=== PATIENT | male | born 1950 | race Caucasian/White ===

== ENCOUNTER 2016-12-17 16:22 | Emergency (ER) | payer OTHER, BC ==
[~2016-12-17] VITALS: Ht 175.3 cm; Wt 86.5 kg
[2016-12-17 16:28] VITALS: TEMP 36.8; Ht 175.3 cm; Wt 86.5 kg
[2016-12-17] MEDS ORDERED: SODIUM CHLORIDE 0.9% 1000ML 1,000 ML IV STA (17:12)
[2016-12-17] MEDS ORDERED: METOCLOPRAMIDE HCL INJ 5 MG/ML 2 ML VIAL IV STA (17:12)
[2016-12-17 17:32] LABS: HEMATOCRIT 41.8 % (42-52); MEAN CELL VOLUME 90.1 fL (80-100); MEAN CORPUSCULAR HEMOGLOBIN 30.8 pg (25-34); MEAN CORPUSCULAR HGB CONC 34.2 g/dl (32-36); MEAN PLATELET VOLUME 9.2 fL (7.4-10.4); PLATELET COUNT 172 K/uL (130-400); RED BLOOD COUNT 4.64 M/uL (4.7-6.1); WHITE BLOOD COUNT 3.68 K/uL (4.8-10.8)
[2016-12-17 17:40] LABS: BLOOD UREA NITROGEN 13 mg/dl (7-18); BUN/CREATININE RATIO 12.2 (10-20); CALCIUM 8.9 mg/dl (8.5-10.1); CARBON DIOXIDE 25 mmol/L (21-32); CHLORIDE 109 mmol/L (98-107); GLUCOSE 128 mg/dl (70-99); POTASSIUM 3.9 mmol/L (3.5-5.1); SODIUM 143 mmol/L (136-145)
--- NOTE | 2016-12-17 17:44 | EMERGENCY ROOM VISIT NOTE ---
History Report prepared by Melvin: Svetlana Maher Under the Supervision of: Dr. Monroe Chi M.D. First contact with patient: 16:50 Chief Complaint: NEURO SYMPTOMS Stated Complaint: NUMBNESS/SWELLING IN LT HAND, MIGRAINE,L EYE BLURR History of Present Illness The patient is a 66 year old male who presents to the Emergency Room with complaints of persistent left hand numbness starting 2 days ago. On Thursday morning, he had upper left lip numbness and left hand numbness and swelling. He also had blurry vision out of his left eye. He has a history of ocular migraines which he diagnosed himself. He thought that he might be having an ocular migraine, but the left hand numbness and swelling was new for him. While he was driving today, he was listening to the radio and heard an announcement about strokes which made him concerned. His brother has had a stroke in the past. He called the nurse hotline and was told to go to the ED. He states that when he looks out of his left eye, his vision is blurry. He does not have any blurry vision when looking through both eyes. He denies any headache, nausea, vomiting, abdominal pain, chest pain, SOB, or dizziness. He thinks that he might be dehydrated as he drinks coffee and beer often. He is from [place] and is here visiting family. He has been spending a lot of time driving. He has a history of left rotator cuff injury. Source of History: patient Onset: 2 days ago Position: hand (left) Quality: numbness Timing: other (persistent) Associated Symptoms: No headache, No chest pain, No SOB, No nausea, No vomiting, No abdominal pain Note: Pt reports blurry vision out of left eye, left upper lip numbness. Pt denies dizziness. Review of Systems See HPI for pertinent positives and negatives. A total of ten systems were reviewed and were otherwise negative. Past Medical & Surgical Medical Problems: (1) Ocular migraine Family History Stroke Social History Smoking Status: Never Smoker Marital Status: single Occupation Status: retired Current/Historical Medications Scheduled Alfuzosin Hcl (Uroxatral), 10 MG PO DAILY Levothyroxine Sodium (Levothyroxine Sodium), 1 TAB PO DAILY Rosuvastatin Calcium (Crestor), 5 MG PO DAILY Allergies Coded Allergies: No Known Allergies (Unverified , 12/17/16) Physical Exam Vital Signs Date Time Temp Pulse Resp B/P (MAP) Pulse Ox O2 Delivery O2 Flow Rate FiO2 12/17/16 20:41 60 16 157/82 97 12/17/16 19:15 55 12/17/16 18:36 57 16 115/77 97 Room Air 12/17/16 17:39 61 18 98 Room Air 12/17/16 17:25 Room Air 12/17/16 16:28 36.8 76 20 122/76 96 Room Air Physical Exam GENERAL: Awake, alert, well-appearing, in no distress HENT: Normocephalic, atraumatic. Dry mucous membranes. EYES: Normal conjunctiva. Sclera non-icteric. NECK: Supple. No nuchal rigidity. FROM. No JVD. RESPIRATORY: Clear to auscultation. CARDIAC: Regular rate, normal rhythm. Extremities warm and well perfused. Pulses equal. ABDOMEN: Soft, non-distended. No tenderness to palpation. No rebound or guarding. No masses. RECTAL: Deferred. MUSCULOSKELETAL: Chest examination reveals no tenderness. The back is symmetrical on inspection without obvious abnormality. There is no CVA tenderness to palpation. No joint edema. LOWER EXTREMITIES: Calves are equal size bilaterally and non-tender. No edema. No discoloration. NEURO: Normal sensorium. No sensory or motor deficits noted. SKIN: No rash or jaundice noted. Medical Decision & Procedures ER Provider Diagnostic Interpretation: Radiology results as stated below per my review and radiologist interpretation: CHEST ONE VIEW PORTABLE CLINICAL HISTORY: 66 years-old Male presenting with CHEST PAIN, numbness and swelling in the left hand. TECHNIQUE: Portable upright AP view of the chest was obtained. COMPARISON: None. FINDINGS: Mild prominence of the cardiac silhouette. Lungs and pleural spaces clear. Osseous structures normal. Upper abdomen normal. IMPRESSION: 1. Possible mild cardiomegaly, although this may be projectional related to AP technique. No other evidence of acute cardiopulmonary disease. Electronically signed by: Garcia Ding M.D. 12/17/2016 5:57 PM Dictated Date/Time: 12/17/2016 5:56 PM HEAD WITHOUT CONTRAST (CT) CLINICAL HISTORY: 66 years-old Male presenting with ocular migraine. TECHNIQUE: Multidetector CT imaging of the head was performed without the use of intravenous contrast. IV contrast: None. A dose lowering technique was used consistent with the principles of ALARA (as low as reasonably achievable). COMPARISON: None. CT DOSE (mGy.cm): The estimated cumulative dose is 823.94 mGycm. FINDINGS: Supervisor Particleboard topogram: Unremarkable. Ventricles and sulci normal in size. Brain parenchyma normal in appearance with preserved garcia-white differentiation. No mass effect or midline shift. No hemorrhage or acute territorial infarct. No extra-axial fluid collection. Paranasal sinuses and mastoid air cells clear. Calvarium intact. IMPRESSION: 1. No acute intracranial pathology. Electronically signed by: Garcia Ding M.D. 12/17/2016 6:09 PM Dictated Date/Time: 12/17/2016 6:08 PM Laboratory Results 12/17/16 16:45 Red Blood Count 4.64, Mean Corpuscular Volume 90.1, Mean Corpuscular Hemoglobin 30.8, Mean Corpuscular Hemoglobin Concent 34.2, Mean Platelet Volume 9.2, Neutrophils (%) (Auto) 40.4, Lymphocytes (%) (Auto) 50.3, Monocytes (%) (Auto) 7.1, Eosinophils (%) (Auto) 1.1, Basophils (%) (Auto) 0.8, Neutrophils # (Auto) 1.49, Lymphocytes # (Auto) 1.85, Monocytes # (Auto) 0.26, Eosinophils # (Auto) 0.04, Basophils # (Auto) 0.03 12/17/16 16:45 Test 12/17/16 16:45 12/17/16 19:37 White Blood Count 3.68 K/uL (4.8-10.8) Red Blood Count 4.64 M/uL (4.7-6.1) Hemoglobin 14.3 g/dL (14.0-18.0) Hematocrit 41.8 % (42-52) Mean Corpuscular Volume 90.1 fL (80-100) Mean Corpuscular Hemoglobin 30.8 pg (25-34) Mean Corpuscular Hemoglobin Concent 34.2 g/dl (32-36) Platelet Count 172 K/uL (130-400) Mean Platelet Volume 9.2 fL (7.4-10.4) Neutrophils (%) (Auto) 40.4 % Lymphocytes (%) (Auto) 50.3 % Monocytes (%) (Auto) 7.1 % Eosinophils (%) (Auto) 1.1 % Basophils (%) (Auto) 0.8 % Neutrophils # (Auto) 1.49 K/uL (1.4-6.5) Lymphocytes # (Auto) 1.85 K/uL (1.2-3.4) Monocytes # (Auto) 0.26 K/uL (0.11-0.59) Eosinophils # (Auto) 0.04 K/uL (0-0.5) Basophils # (Auto) 0.03 K/uL (0-0.2) RDW Standard Deviation 44.1 fL (36.4-46.3) RDW Coefficient of Variation 13.4 % (11.5-14.5) Immature Granulocyte % (Auto) 0.3 % Immature Granulocyte # (Auto) 0.01 K/uL (0.00-0.02) Anion Gap 9.0 mmol/L (3-11) Est Creatinine Clear Calc Drug Dose 71.0 ml/min Estimated GFR () 80.1 Estimated GFR (Non- 69.1 BUN/Creatinine Ratio 12.2 (10-20) Calcium Level 8.9 mg/dl (8.5-10.1) Troponin I < 0.015 ng/ml (0-0.045) Laboratory results reviewed by me Medications Administered Medications (Trade) Dose Ordered Sig/Sarah Route Start Time Stop Time Status Last Admin Dose Admin Sodium Chloride 1,000 ml @ 999 mls/hr Q1H1M STAT IV 12/17/16 17:12 12/17/16 18:12 DC 12/17/16 17:32 999 MLS/HR Metoclopramide HCl (Reglan Inj) 10 mg NOW STAT IV 12/17/16 17:12 12/17/16 17:22 DC 12/17/16 17:32 10 MG ECG Indication: weakness Rate (beats per minute): 64 Rhythm: normal sinus Findings: no acute ischemic change, other (normal axis) ED Course 1709: The patient was evaluated in room C10. A complete history and physical exam was performed. 1711: Reglan Inj 10 mg IV, NSS 1000 ml @ 999 mls/hr IV. 1926: I reevaluated the patient. He is feeling better. 2030: I reevaluated the patient. I updated him on the results. His second troponin was negative. He verbalized agreement of the treatment plan. He was discharged home. Medical Decision I reviewed the patient's past medical history, medications, and the nursing notes as described above. Differential diagnosis: ocular migraine, dehydration, electrolyte abnormality, arrhythmia, ACS, musculoskeletal strain, radiculopathy. The patient is a 66 y/o gentleman with a pmhx of ocular migraines presents to the ED with blurred vision c/w with his prior migraines but transient left arm numbness per HPI. On arrival the patient reports mostly resolved arm numbness but some residual blurred vision that is bilateral but more on left eye. Although he says that his left eye is normally worse than his right. Reports that he was driving and saw a sign about stroke and got worried when perhaps he would have considered it likely his typical migraines. On arrival, he is in NAD , AFVSS. EKg unremarkable. Trop negative in setting of patient's arm numbness. CXR negative. CT head negative. Labs otherwise unremarkable. 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 After IVF and reglan patient reports feeling back to normal. Moreover, palpation of the patient's left arm and forearm in radial distribution reproduces patient's prior numbness sensation. Given patient's h/x of rotator cuff injury patient's arm numbness likely muscular particularly since he has been spending many hours driving over the past couple weeks since he drove from [place] to [place] to visit family. Findings and plan for follow-up reviewed with patient. Patient agreeable and d/c'd per discharge instructions. Medication Reconcilliation Current Medication List: was personally reviewed by me Blood Pressure Screening Patient's blood pressure: Normal blood pressure Blood pressure disposition: Did not require urgent referral Impression Primary Impression: Ocular migraine Scribe Attestation The scribe's documentation has been prepared under my direction and personally reviewed by me in its entirety. I confirm that the note above accurately reflects all work, treatment, procedures, and medical decision making performed by me. Departure Information Dispostion Home / Self-Care Referrals No Doctor, Assigned (PCP) Patient Instructions Chest Pain - [facility], ED Blurred Vision, ED Headache Migraine, My [facility] Additional Instructions Please follow up with your primary care physician in the next 1-3 days for re- evaluation. You likely had an ocular migraine Otherwise, your exam, EKG, chest xray, CT scan of your head, and lab results did not show signs of an emergent condition at this time. Return to the emergency department for worsening symptoms as described in the accompanying instructions.
[2016-12-17] MEDS ORDERED: ROSU5TAB PO (17:46)
[2016-12-17] MEDS ORDERED: LEVO112T4 PO (17:46)
[2016-12-17] MEDS ORDERED: ALFU10TA30 PO (17:46)
--- NOTE | 2016-12-17 17:58 | DIAGNOSTIC IMAGING REPORT ---
CHEST ONE VIEW PORTABLE CLINICAL HISTORY: 66 years-old Male presenting with CHEST PAIN, numbness and swelling in the left hand. TECHNIQUE: Portable upright AP view of the chest was obtained. COMPARISON: None. FINDINGS: Mild prominence of the cardiac silhouette. Lungs and pleural spaces clear. Osseous structures normal. Upper abdomen normal. IMPRESSION: 1. Possible mild cardiomegaly, although this may be projectional related to AP technique. No other evidence of acute cardiopulmonary disease. Electronically signed by: Garcia Ding M.D. 12/17/2016 5:57 PM Dictated Date/Time: 12/17/2016 5:56 PM
--- NOTE | 2016-12-17 18:11 | DIAGNOSTIC IMAGING REPORT ---
HEAD WITHOUT CONTRAST (CT) CLINICAL HISTORY: 66 years-old Male presenting with ocular migraine. TECHNIQUE: Multidetector CT imaging of the head was performed without the use of intravenous contrast. IV contrast: None. A dose lowering technique was used consistent with the principles of ALARA (as low as reasonably achievable). COMPARISON: None. CT DOSE (mGy.cm): The estimated cumulative dose is 823.94 mGycm. FINDINGS: Brokerage Office Manager topogram: Unremarkable. Ventricles and sulci normal in size. Brain parenchyma normal in appearance with preserved garcia-white differentiation. No mass effect or midline shift. No hemorrhage or acute territorial infarct. No extra-axial fluid collection. Paranasal sinuses and mastoid air cells clear. Calvarium intact. IMPRESSION: 1. No acute intracranial pathology. Electronically signed by: Garcia Ding M.D. 12/17/2016 6:09 PM Dictated Date/Time: 12/17/2016 6:08 PM
[2016-12-17 18:19] LABS: BASO % 0.8 %; BASO ABS # 0.03 K/uL (0-0.2); COMPLETE YES; EOS % 1.1 %; IG% 0.3 %; LYMPH % 50.3 %; LYMPH ABS # 1.85 K/uL (1.2-3.4); MONO % 7.1 %; NEUT % 40.4 %
[2016-12-17 20:41] VITALS: BP 157/82; PULSE 60; O2SAT 97
== END 2016-12-17 20:43 | disposition home or self-care (01) ==
LOC: C.EDB 16:25 → C.EDC 20:43
DX: G43.819 Other migraine, intractable, without status migrainosus (principal); Z82.49 Family history of ischemic heart disease and other diseases of the circulatory system; Z79.899 Other long term (current) drug therapy